=== PATIENT | male | born 1995 | race Asian ===

== ENCOUNTER 2025-03-30 17:12 | Emergency (ER) | payer MEDICAID, OTHER ==
[~2025-03-30] VITALS: Ht 157.5 cm; Wt 68.2 kg
[2025-03-30 17:27] VITALS: BP 129/85; PULSE 85; RESP 18; TEMP 98.5; O2SAT 99
== END 2025-03-30 17:51 | disposition left against medical advice (07) ==
LOC: ER 17:12 → EDBD 17:12 → ER 17:51
DX: M79.606 Pain in leg, unspecified (principal); Z53.21 Procedure and treatment not carried out due to patient leaving prior to being seen by health care provider

== ENCOUNTER 2025-04-01 11:02 | Emergency (ER) | payer MEDICAID ==
[~2025-04-01] VITALS: Ht 170.2 cm; Wt 82.0 kg
--- NOTE | 2025-04-01 11:07 | ED.PDOC ---
History of Present Illness HPI Comments 29-year-old male with PMHx CVA presents with a chief complaint of chest pain. Patient states that his pain is localized to his left ribcage. Patient mentions that he is homeless and smokes methamphetamine. Patient is tender to palpation to his left ribcage. Patient mentions that he recently had a "fall backwards". Time Seen by MD: 10:59 Primary Care Provider: denies Reviewed Notes: Medications, Allergies Allergies: Coded Allergies: NO KNOWN ALLERGIES (Unverified , 03/30/25) Home Meds Active Scripts Clindamycin Hcl (CLEOCIN) 150 Mg Cap, 1 CAP PO TID, #30 CAP Prov:CHAN GOTTI MD 04/01/25 Information Source: Patient, Emergency Med Personnel Mode of Arrival: EMS Severity: Moderate Timing: Hours Duration: Since onset Prehospital treatment: None Past Medical History PAST MEDICAL HISTORY: CVA Surgical History (Other): BRAIN SURGERY Family History Family History: Reviewed,noncontributory to illness Social History Smoker: Cigarettes Alcohol: Rarely Drugs: Marijuana, Methamphetamine Lives In: Homeless Constitutional: denies: chills, diaphoresis, fatigue, fever, malaise, sweats, weakness, others EENTM: denies: blurred vision, double vision, ear bleeding, ear discharge, ear drainage, ear pain, ear ringing, eye pain, eye redness, hearing loss, mouth pain, mouth swelling, nasal discharge, nose bleeding, nose congestion, nose pain, photophobia, tearing, throat pain, throat swelling, voice changes, others Respiratory: denies: cough, hemoptysis, orthopnea, SOB at rest, shortness of breath, SOB with excertion, stridor, wheezing, others Cardiovascular: reports: chest pain; denies: dizzy spells, diaphoresis, Dyspnea on exertion, edema, irregular heart beat, left arm pain, lightheadedness, palpitations, PND, syncope, others Gastrointestinal: denies: abdomen distended, abdominal pain, blood streaked bowels, constipated, diarrhea, dysphagia, difficulty swallowing, hematemesis, melena, nausea, poor appetite, poor fluid intake, rectal bleeding, rectal pain, vomiting, others Genitourinary: denies: burning, dysuria, flank pain, frequency, hematuria, incontinence, penile discharge, penile sore, pain, testicle pain, testicle swelling, urgency, others Neurological: denies: dizziness, fainting, headache, left sided numbness, left sided weakness, numbness, paresthesia, pre-existing deficit, right sided numbness, right sided weakness, seizure, speech problems, tingling, tremors, weakness, others Musculoskeletal: denies: back pain, gout, joint pain, joint swelling, muscle pain, muscle stiffness, neck pain, others Integumetry: denies: bruises, change in color, change in hair/nails, dryness, laceration, lesions, lumps, rash, wounds, others Allergic/Immunocompromised: denies: Difficulty Healing, Frequent Infections, Hives, Itching, others Hematologic/Lymphatic: denies: anemia, blood clots, easy bleeding, easy bruising, swollen glands, others Endocrine: denies: excessive hunger, excessive sweating, excessive thirst, excessive urination, flushing, intolerance to cold, intolerance to heat, unexplained weight gain, unexplained weight loss, others Psychiatric: denies: anxiety, bipolar disorder, depression, hopeless, panic dis order, schizophrenia, sleepless, suicidal, others All Other Systems: Reviewed and Negative Physical Exam General Appearance: Cachectic HEENT: Normal ENT Inspection, Pharynx Normal, TMs Normal Neck: Full Range of Motion, Non-Tender, Normal, Normal Inspection Respiratory: Chest Non-Tender, Lungs Clear, No Accessory Muscle Use, No Respiratory Distress, Normal Breath Sounds Cardiovascular: No Edema, No JVD, No Murmur, No Gallop, Normal Peripheral Pulses, Regular Rate/Rhythm Breast Exam: Deferred Gastrointestinal: No Organomegaly, Non Tender, No Pulsatile Mass, Normal Bowel Sounds, Soft Genitalia: Deferred Pelvic: Deferred Rectal: Deferred Extremities: No calf tenderness, Normal capillary refill, Normal inspection, Normal range of motion, Non-tender, No pedal edema Musculoskeletal : Apperance: Normal Neurologic: Alert, 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 Was a procedure done?: No EKG EKG : Pulse Rate (adult): 130 [place]: Normal Cardiac Rhythm: ST Block: None Hypertrophy: None ST: Normal Differential Dx Considerations may include: Cellulitis, abscess, generalized weakness, atypical chest pain X-Ray, Labs, Meds, VS Vital Signs Date Time Temp Pulse Resp B/P (MAP) Pulse Ox O2 Delivery O2 Flow Rate FiO2 04/01/25 12:00 99.8 120 18 105/78 (87) 99 99.8 04/01/25 11:07 130 04/01/25 11:02 130 Lab Test 04/01/25 11:13 Range/Units White Blood Count 14.7 H 4.4-10.8 10^3/uL Red Blood Count 4.78 4.5-5.90 10^6/uL Hemoglobin 13.6 13.5-17.5 g/dL Hematocrit 40.4 L 41.0-53.0 % Mean Corpuscular Volume 84.3 80.0-100.0 fL Mean Corpuscular Hemoglobin 28.4 28.0-32.0 pg Mean Corpuscular Hemoglobin Concent 33.7 32.0-36.0 g/dL Red Cell Distribution Width 14.5 H 11.8-14.3 % Platelet Count 294 140-450 10^3/uL Mean Platelet Volume 7.2 6.9-10.8 fL Neutrophils (%) (Auto) 83.9 H 37.0-80.0 % Lymphocytes (%) (Auto) 5.9 L 10.0-50.0 % Monocytes (%) (Auto) 9.3 0.0-12.0 % Eosinophils (%) (Auto) 0.6 0.0-7.0 % Basophils (%) (Auto) 0.3 0.0-2.0 % Neutrophils # (Auto) 12.3 H 1.6-8.6 10 ^3/uL Lymphocytes # (Auto) 0.9 0.4-5.4 10 ^3/uL Monocytes # (Auto) 1.4 H 0-1.3 10 ^3/uL Eosinophils # (Auto) 0.1 0-0.8 10 ^3/uL Basophils # (Auto) 0 0-0.2 10 ^3/uL Nucleated Red Blood Cells 0.0 % Sodium Level 139 136-145 mmol/L Potassium Level 4.3 3.5-5.1 mmol/L Chloride Level 104 98-107 mmol/L Carbon Dioxide Level 26 20-31 mmol/L Anion Gap 9 5-15 Blood Urea Nitrogen 14 9-23 mg/dL Creatinine 0.87 0.700-1.30 mg/dL Glomerular Filtration Rate Calc 121 >90 mL/min BUN/Creatinine Ratio 16.1 10.0-20.0 Serum Glucose 93 74-106 mg/dL Calcium Level 10.7 H 8.7-10.4 mg/dL Troponin I High Sensitivity < 3 L </=54 ng/L The chest x-ray is negative The CBC shows an elevated white blood cell count of 14.7 The rest of the CBC is within normal limits The chemistry panel is within normal limits We feel that this white blood cell count could be secondary to cellulitis on the legs At this time, the patient was placed on clindamycin The patient will return to the emergency department's condition worsens. Instrumentation Instructor consult has been placed Images Reviewed?: Images reviewed and evaluated by me Time of 1ST Reevaluation: 11:29 Reevaluation 1ST: Unchanged Patient Education/Counseling: Diagnosis, Treatment, Prognosis, Need For Follow Up Family Education/Counseling: No Family Present Departure 1 Departure Time of Disposition: 12:21 Impression: Primary Impression: Bilateral lower leg cellulitis Additional Impression: Musculoskeletal chest pain Disposition: 01 HOME / SELF CARE / HOMELESS Condition: Fair e-Prescriptions Clindamycin Hcl (CLEOCIN) 150 Mg Cap 1 CAP PO TID, #30 CAP Prov: CHAN GOTTI MD 04/01/25 Discharged With: Self Critical Care Note Critical Care Time?: No Stability Stability form required: No Heart Score Heart Score: Heart Score Response (Comments) Value History N/A 0 EKG N/A 0 Age N/A 0 Risk Factors N/A 0 Troponin N/A 0 Total 0 I personally scribed for CHAN GOTTI MD ([email or web address]) on 04/01/25 at 11:07. Electronically submitted by Geraldo Bernstein ([email or web address]). CHAN GOTTI MD April 01, 2025 11:07
[2025-04-01] MEDS ORDERED: SODIUM CHLORIDE 0.9% 1,000 ML IV ONE (11:15)
[2025-04-01 11:31] LABS: Basophils # (auto) 0 10 ^3/uL (0-0.2); Basophils % (auto) 0.3 % (0.0-2.0); Eosinophils # (auto) 0.1 10 ^3/uL (0-0.8); Eosinophils % (auto) 0.6 % (0.0-7.0); Hematocrit 40.4 % (41.0-53.0); Hemoglobin 13.6 g/dL (13.5-17.5); Lymphocytes # (auto) 0.9 10 ^3/uL (0.4-5.4); Lymphocytes % (auto) 5.9 % (10.0-50.0); Mean Corpuscular Hemoglobin 28.4 pg (28.0-32.0); Mean Corpuscular Hgb Conc. 33.7 g/dL (32.0-36.0); Mean Corpuscular Volume 84.3 fL (80.0-100.0); Monocytes # (auto) 1.4 10 ^3/uL (0-1.3); Monocytes % (auto) 9.3 % (0.0-12.0); Neutrophils # (auto) 12.3 10 ^3/uL (1.6-8.6); Neutrophils % (auto) 83.9 % (37.0-80.0); Platelet Count (auto) 294 10^3/uL (140-450); Red Blood Cells 4.78 10^6/uL (4.5-5.90); Red Cell Distribution Width 14.5 % (11.8-14.3); White Blood Cell 14.7 10^3/uL (4.4-10.8)
[2025-04-01 11:39] LABS: Chloride 104 mmol/L (98-107); Potassium 4.3 mmol/L (3.5-5.1); Sodium 139 mmol/L (136-145)
[2025-04-01 11:40] LABS: Anion Gap 9 (5-15); Carbon Dioxide 26 mmol/L (20-31)
[2025-04-01 11:42] LABS: Calcium 10.7 mg/dL (8.7-10.4)
[2025-04-01 11:45] LABS: Glucose 93 mg/dL (74-106)
[2025-04-01 11:46] LABS: BUN/Creatinine Ratio 16.1 (10.0-20.0); Blood Urea Nitrogen 14 mg/dL (9-23)
[2025-04-01 12:00] VITALS: BP 105/78; PULSE 120; RESP 18; TEMP 99.8; O2SAT 99
--- NOTE | 2025-04-01 12:12 | DVH ---
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 Lungs: Clear Pleura: No effusion. No pneumothorax. Cardiomediastinal contours: Unremarkable Bones: Unremarkable IMPRESSION: No evidence of acute disease.
[2025-04-01] MEDS ORDERED: CLIN150C PO (12:22)
--- NOTE | 2025-04-01 18:58 | ECG ---
[facility] Test Date: 2025-04-01 Test Time: 11:02:03 Pat Name: CLAUDIA CORTES Department: ED Room: Gender: M Sample Book Maker: CHUCHO : 1995 Requested By: CHAN GOTTI Order Number: [id number] Reading MD: Measurements Intervals [place] Rate: 130 P: 101 MN: 119 QRS: 88 QRSD: 80 T: 45 QT: 287 QTc: 422 Interpretive Statements Sinus tachycardia Consider right atrial enlargement Please click the below link to view image of tracing.
== END 2025-04-01 15:59 | disposition home or self-care (01) ==
LOC: EDSEX 11:02 → EDBD 11:02 → ER 11:06
DX: L03.115 Cellulitis of right lower limb (principal); L03.116 Cellulitis of left lower limb; R07.89 Other chest pain; F17.210 Nicotine dependence, cigarettes, uncomplicated; Z86.73 Personal history of transient ischemic attack (TIA), and cerebral infarction without residual deficits; Z59.00 Homelessness unspecified
CPT/HCPCS: 36415; 71046; 80048; 84484; 85025; 93005

== ENCOUNTER 2025-05-15 10:22 | Emergency (ER) | payer MEDICAID ==
[~2025-05-15] VITALS: Ht 165.1 cm; Wt 59.0 kg
[~2025-05-15 10:22] MED LIST: CLIN150C PO
--- NOTE | 2025-05-15 11:50 | ED.PDOC ---
History of Present Illness(SKN HPI Comments A 29 YEAR OLD MALE BROUGHT IN BY AMBULANCE PRESENTS TO THE ED WITH COMPLAINT OF INSECT BITES OF BILATERAL ANKLES. PATIENT STATES HE WAS BITTEN BY INSECT ON HIS BILATERAL ANKLES ABOUT 3 DAYS AGO AND HAS BEEN EXPERIENCING REDNESS, SWELLING, AND INCREASED PAIN OVER THE PAST 3 DAYS. PATIENT DENIES FEVER, CHILLS, SHORTNESS OF BREATH, CHEST PAIN, ABDOMINAL PAIN, NAUSEA, VOMITING, HEADACHE, OR OTHER COMPLAINTS. NO OTHER SYMPTOMS OR MODIFYING FACTORS AT THIS TIME. PATIENT IS ALERT, ORIENTED X 4, AND HAS STEADY GAIT. Chief Complaint: Wound Check Time Seen by MD: 10:42 Primary Care Provider: unknown History of Present Illness: Nurses Notes, Medications, Allergies Allergies: Coded Allergies: NO KNOWN ALLERGIES (Unverified , 03/30/25) Home Meds Active Scripts Cephalexin Monohydrate (Cephalexin) 500 Mg Cap, 1 CAP PO TID, #30 CAP Prov:LORETTA GROVES 05/15/25 Sulfamethoxazole W/Trimethopri (Bactrim Ds Tablet) 1 Tab Tb, 1 TAB PO BID for 10 Days, #20 TAB Prov:LORETTA GROVES 05/15/25 Clindamycin Hcl (CLEOCIN) 150 Mg Cap, 1 CAP PO TID, #30 CAP Prov:CHAN GOTTI MD 04/01/25 Information Source: Patient, Emergency Med Personnel Mode of Arrival: EMS Severity: Moderate Timing: Days Duration: Since onset, Days Prehospital treatment: None Location: Other (BILATERAL ANKLES) Mechanism: Insect Occurence: Outdoors Object: None Condition of Object: None Retained Foreign Body: No Wound Type: Other (INSECT BITES) Immunization Status of Animal: NA Tetanus: UTD, Unknown History of: None Associated Signs and Symptoms: Redness, Pain Past Medical History PAST MEDICAL HISTORY: Denies Surgical History: Denies all surgeries Family History Family History: Reviewed,noncontributory to illness Social History Smoker: Cigarettes Alcohol: Rarely Drugs: Marijuana, Methamphetamine Lives In: Homeless Constitutional: denies: chills, diaphoresis, fatigue, fever, malaise, sweats, weakness, others EENTM: denies: blurred vision, double vision, ear bleeding, ear discharge, ear drainage, ear pain, ear ringing, eye pain, eye redness, hearing loss, mouth pain, mouth swelling, nasal discharge, nose bleeding, nose congestion, nose pain, photophobia, tearing, throat pain, throat swelling, voice changes, others Respiratory: denies: cough, hemoptysis, orthopnea, SOB at rest, shortness of breath, SOB with excertion, stridor, wheezing, others Cardiovascular: denies: chest pain, dizzy spells, diaphoresis, Dyspnea on exertion, edema, irregular heart beat, left arm pain, lightheadedness, palpitations, PND, syncope, others Gastrointestinal: denies: abdomen distended, abdominal pain, blood streaked bowels, constipated, diarrhea, dysphagia, difficulty swallowing, hematemesis, melena, nausea, poor appetite, poor fluid intake, rectal bleeding, rectal pain, vomiting, others Genitourinary: denies: burning, dysuria, flank pain, frequency, hematuria, incontinence, penile discharge, penile sore, pain, testicle pain, testicle swelling, urgency, others Neurological: denies: dizziness, fainting, headache, left sided numbness, left sided weakness, numbness, paresthesia, pre-existing deficit, right sided numbness, right sided weakness, seizure, speech problems, tingling, tremors, weakness, others Musculoskeletal: denies: back pain, gout, joint pain, joint swelling, muscle pain, muscle stiffness, neck pain, others Integumetry: reports: lesions, lumps, wounds (INSECT BITES OF BILATERAL ANKLES); denies: bruises, change in color, change in hair/nails, dryness, laceration, rash, others Allergic/Immunocompromised: denies: Difficulty Healing, Frequent Infections, Hives, Itching, others Hematologic/Lymphatic: denies: anemia, blood clots, easy bleeding, easy bruising, swollen glands, others Endocrine: denies: excessive hunger, excessive sweating, excessive thirst, excessive urination, flushing, intolerance to cold, intolerance to heat, unexplained weight gain, unexplained weight loss, others Psychiatric: denies: anxiety, bipolar disorder, depression, hopeless, panic disorder, schizophrenia, sleepless, suicidal, others All Other Systems: Reviewed and Negative Physical Exam General Appearance: No Apparent Distress, Normal HEENT: Normal ENT Inspection, PERRL/EOMI, Pharynx Normal, TMs Normal Neck: Full Range of Motion, Non-Tender, Normal, Normal Inspection Respiratory: Chest Non-Tender, Lungs Clear, No Accessory Muscle Use, No Respiratory Distress, Normal Breath Sounds Cardiovascular: No Edema, No JVD, No Murmur, No Gallop, Normal Peripheral Pulses, Regular Rate/Rhythm Breast Exam: Deferred Gastrointestinal: No Organomegaly, Non Tender, No Pulsatile Mass, Normal Bowel Sounds, Soft Genitalia: Deferred Pelvic: Deferred Rectal: Deferred Extremities: No calf tenderness, Normal capillary refill, Normal range of motion, No pedal edema, Tender (WITH RED BUMPS ON BILATERAL LOWER LEGS, NO BONY TENDERNESS, SWELLING AND DEFORMITY, NO DVT SIGNS. 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 ) Peripheral Pulses: 2+ carotid (R), 2+ carotid (L) Lymphatic: No Adenopathy Was a procedure done? Was a procedure done?: No Differential Diagnosis (INTG) Differential Diagnosis: Abrasion, Cellulitis, Insect Envenomation, Puncture Wound Differential Diagnosis: Impetigo, Lyme disease Differential Diagnosis: Abrasion, Cellulitis, N/A Abscess: N/A Differential Diagnosis: N/A X-Ray, Labs, Meds, VS Vital Signs Date Time Temp Pulse Resp B/P (MAP) Pulse Ox O2 Delivery O2 Flow Rate FiO2 05/15/25 10:27 98.1 107 20 119/74 (89) 97 98.1 X-Ray, Labs, Meds, VS Comment EXTERNAL MEDICAL RECORDS REVIEWED: [NONE] INDEPENDENT HISTORIANS: [NONE] SOCIAL DETERMINANTS OF HEALTH: [NONE] LABS ORDERED: NONE REVIEWED AND INTERPRETED RESULTS: NONE IMAGING ORDERED: NONE TREATMENTS ORDERED: PATIENT DECLINED ROCEPHIN INJECTION HERE IN THE ED. PROCEDURES PERFORMED: NONE CRITICAL CARE TIME: NONE I HAVE DISCUSSED THE PATIENT WITH THE ATTENDING PHYSICIAN DR. HERNANDEZ AND HE AGREES WITH THE PATIENT'S PLAN OF CARE AND DISPOSITION. BASED ON HISTORY OF PRESENT ILLNESS, AND PHYSICAL EXAM, PATIENT WILL BE DISCHARGED HOME. DISCUSSED PLAN FOR DISCHARGE HOME WITH RX [KEFLEX AND SEPTRA DS]. MEDICATION WARNINGS GIVEN. SHARED DECISION MAKING: PATIENT INSTRUCTED TO FOLLOW UP WITH PRIMARY CARE PROVIDER IN 1-2 DAYS FOR RE-EVALUATION OF SYMPTOMS. PATIENT VERBALIZES UNDERSTANDING TO RETURN TO ED FOR NEW OR WORSENING SYMPTOMS OR IF FOLLOW UP WITH PCP CANNOT BE OBTAINED. PATIENT FEELS COMFORTABLE GOING HOME AT THIS TIME. ALL QUESTIONS ADDRESSED AT TIME OF DISCHARGE. Time of 1ST Reevaluation: 12:00 Reevaluation 1ST: Improved Patient Education/Counseling: Diagnosis, Treatment, Need For Follow Up Family Education/Counseling: Diagnosis, Treatment, Need For Follow Up Medical Screening: No EMC Exist At This Time SEPSIS Sepsis Screen Date sepsis recognized/suspect: May 15, 2025 Time Sepsis recognized/suspect: 1028 Recent Procedure: No On Antibiotic Therapy: No Respiratory Rate >20: No Heart Rate >90: Yes Temp<36 C (96.8 F) or >38.3 C: No SBP <90 or MAP <65 mmHG: No New Acute Mental Status Change: No Is the patient on CPAP, BIPAP,: No Vital Signs Date Time Temp Pulse Resp B/P (MAP) Pulse Ox O2 Delivery O2 Flow Rate FiO2 05/15/25 10:27 98.1 107 20 119/74 (89) 97 98.1 Departure 1 Departure Time of Disposition: 12:00 Impression: Primary Impression: Insect bite of ankle Qualified Codes: S90.569A - Insect bite (nonvenomous), unspecified ankle, i nitial encounter; W57.XXXA - Bitten or stung by nonvenomous insect and other nonvenomous arthropods, initial encounter Disposition: 01 HOME / SELF CARE / HOMELESS Condition: Stable Additional Instructions: FOLLOW UP WITH PCP IN 1-2 DAYS. TAKE MEDICATIONS PRESCRIBED. RETURN TO ED FOR ANY NEW OR WORSENING SYMPTOMS. e-Prescriptions Cephalexin Monohydrate (Cephalexin) 500 Mg Cap 1 CAP PO TID, #30 CAP Prov: LORETTA GROVES 05/15/25 Sulfamethoxazole W/Trimethopri (Bactrim Ds Tablet) 1 Tab Tb 1 TAB PO BID for 10 Days, #20 TAB Prov: LORETTA GROVES 05/15/25 Discharged With: Self Critical Care Note Critical Care Time?: No Stability Stability form required: No I personally scribed for LORETTA GROVES ([email or web address]) on 05/15/25 at 11:50. Electronically submitted by Maco Espinoza ([email or web address]). LORETTA GROVES May 15, 2025 11:50
[2025-05-15] MEDS ORDERED: BACDST PO (11:57)
[2025-05-15] MEDS ORDERED: CEPH500C PO (11:57)
[2025-05-15 12:09] VITALS: BP 114/63; PULSE 95; RESP 20; TEMP 98.6; O2SAT 97
== END 2025-05-15 12:04 | disposition home or self-care (01) ==
LOC: ER 10:22 → EDBD 10:22 → EDUNIT# 10:22 → ER 12:04
DX: S90.562A Insect bite (nonvenomous), left ankle, initial encounter (principal); S90.561A Insect bite (nonvenomous), right ankle, initial encounter; F17.210 Nicotine dependence, cigarettes, uncomplicated; F10.90 Alcohol use, unspecified, uncomplicated; F12.90 Cannabis use, unspecified, uncomplicated; F19.90 Other psychoactive substance use, unspecified, uncomplicated; Z79.899 Other long term (current) drug therapy; W57.XXXA Bitten or stung by nonvenomous insect and other nonvenomous arthropods, initial encounter; Y93.89 Activity, other specified; Y92.89 Other specified places as the place of occurrence of the external cause; Y99.8 Other external cause status; Y90.9 Presence of alcohol in blood, level not specified

== ENCOUNTER 2025-05-18 16:10 | Emergency (ER) | payer MEDICAID ==
[~2025-05-18] VITALS: Ht 162.6 cm; Wt 64.0 kg
[~2025-05-18 16:10] MED LIST changes: +BACDST PO; +CEPH500C PO
--- NOTE | 2025-05-18 16:49 | ED.PDOC ---
History of Present Illness HPI Comments 29-year-old male brought in by ambulance in restraints and with the chief complaint of SI. Patient is homeless and was picked up at a [facility] do from the patient trying to kill himself being safety scissors and needles. AMS note that the patient has tried rehab was before but has never completed them. Patient states that he is feeling depressed at the moment. Patient has a poke abrasions on the left side of the umbilical, as well as the left wrist. Patient is A&O x4 and very calm at the moment. Denies chills, fever, N/V/D, SOB, CP. No other associated symptoms, modifiers, recent injuries or sick contacts present at this time. Chief Complaint: Suicidal Time Seen by MD: 16:20 Primary Care Provider: NONE Reviewed Notes: Nurses Notes, Turbine Assembler Notes, Medications, Allergies Allergies: Coded Allergies: NO KNOWN ALLERGIES (Unverified , 03/30/25) Home Meds Active Scripts Cephalexin Monohydrate (Cephalexin) 500 Mg Cap, 1 CAP PO TID, #30 CAP Prov:LORETTA GROVES 05/15/25 Sulfamethoxazole W/Trimethopri (Bactrim Ds Tablet) 1 Tab Tb, 1 TAB PO BID for 10 Days, #20 TAB Prov:LORETTA GROVES 05/15/25 Clindamycin Hcl (CLEOCIN) 150 Mg Cap, 1 CAP PO TID, #30 CAP Prov:CHAN GOTTI MD 04/01/25 Information Source: Patient, Emergency Med Personnel Mode of Arrival: EMS Severity: Moderate Timing: Minutes Duration: Since onset, Minutes Prehospital treatment: None Past Medical History PAST MEDICAL HISTORY: Denies Surgical History: Denies all surgeries Family History Family History: Reviewed,noncontributory to illness, Unknown Social History Smoker: Unknown Alcohol: Unknown Drugs: Marijuana, Methamphetamine Lives In: Homeless Constitutional: denies: chills, diaphoresis, fatigue, fever, malaise, sweats, weakness, others EENTM: denies: blurred vision, double vision, ear bleeding, ear discharge, ear drainage, ear pain, ear ringing, eye pain, eye redness, hearing loss, mouth pain, mouth swelling, nasal discharge, nose bleeding, nose congestion, nose pain, photophobia, tearing, throat pain, throat swelling, voice changes, others Respiratory: denies: cough, hemoptysis, orthopnea, SOB at rest, shortness of breath, SOB with excertion, stridor, wheezing, others Cardiovascular: denies: chest pain, dizzy spells, diaphoresis, Dyspnea on exertion, edema, irregular heart beat, left arm pain, lightheadedness, palpitations, PND, syncope, others Gastrointestinal: denies: abdomen distended, abdominal pain, blood streaked bowels, constipated, diarrhea, dysphagia, difficulty swallowing, hematemesis, melena, nausea, poor appetite, poor fluid intake, rectal bleeding, rectal pain, vomiting, others Genitourinary: denies: burning, dysuria, flank pain, frequency, hematuria, incontinence, penile discharge, penile sore, pain, testicle pain, testicle swelling, urgency, others Neurological: denies: dizziness, fainting, headache, left sided numbness, left sided weakness, numbness, paresthesia, pre-existing deficit, right sided numbness, right sided weakness, seizure, speech problems, tingling, tremors, weakness, others Musculoskeletal: denies: back pain, gout, joint pain, joint swelling, muscle pain, muscle stiffness, neck pain, others Integumetry: denies: bruises, change in color, change in hair/nails, dryness, laceration, lesions, lumps, rash, wounds, others Allergic/Immunocompromised: denies: Difficulty Healing, Frequent Infections, Hives, Itching, others Hematologic/Lymphatic: denies: anemia, blood clots, easy bleeding, easy bruising, swollen glands, others Endocrine: denies: excessive hunger, excessive sweating, excessive thirst, excessive urination, flushing, intolerance to cold, intolerance to heat, un explained weight gain, unexplained weight loss, others Psychiatric: reports: suicidal; denies: anxiety, bipolar disorder, depression, hopeless, panic disorder, schizophrenia, sleepless, others All Other Systems: Reviewed and Negative Physical Exam Exam Comments poke abrasions on the left side of the umbilical, as well as the left wrist General Appearance: No Apparent Distress, Normal HEENT: Normal ENT Inspection, Pharynx Normal, TMs Normal Neck: Full Range of Motion, Non-Tender, Normal, Normal Inspection Respiratory: Chest Non-Tender, Lungs Clear, No Accessory Muscle Use, No Respiratory Distress, Normal Breath Sounds Cardiovascular: No Edema, No JVD, No Murmur, No Gallop, Normal Peripheral Pulses, Regular Rate/Rhythm Breast Exam: Deferred Gastrointestinal: No Organomegaly, Non Tender, No Pulsatile Mass, Normal Bowel Sounds, Soft Genitalia: Deferred Pelvic: Deferred Rectal: Deferred Extremities: No calf tenderness, Normal capillary refill, Normal inspection, Normal range of motion, Non-tender, No pedal edema Musculoskeletal : Apperance: Normal Neurologic: Alert, fha underwriter II-XII nml as Tested, No Motor Deficits, Normal Affect, Normal Mood, No Sensory Deficits Cerebellar Function: Normal Reflexes: Normal Skin: Dry, Normal Color, Warm Lymphatic: No Adenopathy Was a procedure done? Was a procedure done?: No Differential Dx Considerations may include: SI, psychosis X-Ray, Labs, Meds, VS Vital Signs Date Time Temp Pulse Resp B/P (MAP) Pulse Ox O2 Delivery O2 Flow Rate FiO2 05/19/25 09:39 98.0 65 18 125/80 (95) 100 98.0 05/19/25 07:45 Room Air* 0 21 05/18/25 19:55 95 14 102/62 (75) 97 05/18/25 19:50 Room Air* 0 21 05/18/25 16:30 Room Air* 0 21 05/18/25 16:30 98.5 105 16 109/66 (80) 95 98.5 05/18/25 16:20 97.6 127 18 119/69 (86) 97 97.6 Lab Test 05/18/25 17:08 Range/Units White Blood Count 8.1 4.4-10.8 10^3/uL Red Blood Count 4.94 4.5-5.90 10^6/uL Hemoglobin 13.8 13.5-17.5 g/dL Hematocrit 41.7 41.0-53.0 % Mean Corpuscular Volume 84.5 80.0-100.0 fL Mean Corpuscular Hemoglobin 28.0 28.0-32.0 pg Mean Corpuscular Hemoglobin Concent 33.2 32.0-36.0 g/dL Red Cell Distribution Width 14.9 H 11.8-14.3 % Platelet Count 282 140-450 10^3/uL Mean Platelet Volume 7.5 6.9-10.8 fL Neutrophils (%) (Auto) 73.4 37.0-80.0 % Lymphocytes (%) (Auto) 12.0 10.0-50.0 % Monocytes (%) (Auto) 9.9 0.0-12.0 % Eosinophils (%) (Auto) 3.8 0.0-7.0 % Basophils (%) (Auto) 0.9 0.0-2.0 % Neutrophils # (Auto) 5.9 1.6-8.6 10 ^3/uL Lymphocytes # (Auto) 1.0 0.4-5.4 10 ^3/uL Monocytes # (Auto) 0.8 0-1.3 10 ^3/uL Eosinophils # (Auto) 0.3 0-0.8 10 ^3/uL Basophils # (Auto) 0.1 0-0.2 10 ^3/uL Nucleated Red Blood Cells 0.1 % Sodium Level 146 H 136-145 mmol/L Potassium Level 4.7 3.5-5.1 mmol/L Chloride Level 108 H 98-107 mmol/L Carbon Dioxide Level 34 H 20-31 mmol/L Anion Gap 4 L 5-15 Blood Urea Nitrogen 11 9-23 mg/dL Creatinine 1.14 0.700-1.30 mg/dL Glomerular Filtration Rate Calc 90 >90 mL/min BUN/Creatinine Ratio 9.6 L 10.0-20.0 Serum Glucose 95 74-106 mg/dL Calcium Level 10.5 H 8.7-10.4 mg/dL Plasma/Serum Blood Alcohol 3.1 <10 mg/dL Time of 1ST Reevaluation: 16:50 Reevaluation 1ST: Unchanged Patient Education/Counseling: Diagnosis, Treatment, Prognosis Family Education/Counseling: No Family Present SEPSIS Sepsis Screen Date sepsis recognized/suspect: May 18, 2025 Time Sepsis recognized/suspect: 160 Recent Procedure: No On Antibiotic Therapy: No Respiratory Rate >20: No Heart Rate >90: Yes Temp<36 C (96.8 F) or >38.3 C: No SBP <90 or MAP <65 mmHG: No New Acute Mental Status Change: No Is the patient on CPAP, BIPAP,: No Physician Orders Drug Screen (05/18/25 16:25) Urinalysis (05/18/25 16:25) Chest Xray 1 View (05/18/25 16:25) * Psychiatric Consult (05/18/25 16:25) * Software Engineer Web Services Consult (05/18/25 ) * Software Engineer Web Services Consult (05/18/25 ) Regular Diet (05/19/25 Lunch) Vital Signs Date Time Temp Pulse Resp B/P (MAP) Pulse Ox O2 Delivery O2 Flow Rate FiO2 05/19/25 09:39 98.0 65 18 125/80 (95) 100 98.0 05/19/25 07:45 Room Air* 0 21 05/18/25 19:55 95 14 102/62 (75) 97 05/18/25 19:50 Room Air* 0 21 05/18/25 16:30 Room Air* 0 21 05/18/25 16:30 98.5 105 16 109/66 (80) 95 98.5 05/18/25 16:20 97.6 127 18 119/69 (86) 97 97.6 Laboratory Tests Test 05/18/25 17:08 White Blood Count 8.1 10^3/uL (4.4-10.8) Departure 1 Departure Time of Disposition: 10:28 (Patient is medically cleared. Patient was evaluated for a hold gentle hold was written. We will transfer patient to a psychiatric facility) Impression: Primary Impression: Suicide ideation Disposition: [address] [place] [address] Condition: Serious Critical Care Note Critical Care Time?: No Stability Stability form required: No I personally scribed for VONDA VALDIVIAP (WILLIAN) on 05/18/25 at 16:49. Electronically submitted by Alban Nielsen ([employer]). I personally scribed for VONDA VALDIVIA ELECTRIC MOTOR REPAIRING SUPERVISOR (WILLIAN) on 05/18/25 at 16:49. Electronically submitted by Alban Nielsen ([employer]). VONDA VALDIVIA May 18, 2025 16:49 PRESTON HERNANDEZ MD May 19, 2025 10:28
--- NOTE | 2025-05-18 17:20 | DVH ---
AP portable chest CLINICAL INDICATION: cp FINDINGS: There is a ventriculoperitoneal shunt catheter overlying the lower right neck and chest ext ending to the upper abdomen. Heart size is normal. No infiltrates or effusions. No bony thoracic abno rmalities. IMPRESSION: 1. No acute cardiopulmonary pathology
[2025-05-18 17:27] LABS: Hematocrit 41.7 % (41.0-53.0); Hemoglobin 13.8 g/dL (13.5-17.5); Mean Corpuscular Hemoglobin 28.0 pg (28.0-32.0); Mean Corpuscular Volume 84.5 fL (80.0-100.0); Nucleated Red Blood Cells % 0.1 %
[2025-05-18 17:47] LABS: Anion Gap 4 (5-15); Potassium 4.7 mmol/L (3.5-5.1)
[2025-05-18 17:53] LABS: BUN/Creatinine Ratio 9.6 (10.0-20.0); Blood Urea Nitrogen 11 mg/dL (9-23); Calcium 10.5 mg/dL (8.7-10.4); Carbon Dioxide 34 mmol/L (20-31); Chloride 108 mmol/L (98-107); Glucose 95 mg/dL (74-106); Sodium 146 mmol/L (136-145)
--- NOTE | 2025-05-18 21:15 | DVHINCON2 ---
Date of Service if different f: May 18, 2025 Time of Service: 20:40 Consultation ([facility]) Consulting Physician: VLADIMIR RENTERIA MD Labs Laboratory Tests Test 05/18/25 17:08 White Blood Count 8.1 10^3/uL (4.4-10.8) Red Blood Count 4.94 10^6/uL (4.5-5.90) Hemoglobin 13.8 g/dL (13.5-17.5) Hematocrit 41.7 % (41.0-53.0) Mean Corpuscular Volume 84.5 fL (80.0-100.0) Mean Corpuscular Hemoglobin 28.0 pg (28.0-32.0) Mean Corpuscular Hemoglobin Concent 33.2 g/dL (32.0-36.0) Red Cell Distribution Width 14.9 % (11.8-14.3) Platelet Count 282 10^3/uL (140-450) Mean Platelet Volume 7.5 fL (6.9-10.8) Neutrophils (%) (Auto) 73.4 % (37.0-80.0) Lymphocytes (%) (Auto) 12.0 % (10.0-50.0) Monocytes (%) (Auto) 9.9 % (0.0-12.0) Eosinophils (%) (Auto) 3.8 % (0.0-7.0) Basophils (%) (Auto) 0.9 % (0.0-2.0) Neutrophils # (Auto) 5.9 10 ^3/uL (1.6-8.6) Lymphocytes # (Auto) 1.0 10 ^3/uL (0.4-5.4) Monocytes # (Auto) 0.8 10 ^3/uL (0-1.3) Eosinophils # (Auto) 0.3 10 ^3/uL (0-0.8) Basophils # (Auto) 0.1 10 ^3/uL (0-0.2) Nucleated Red Blood Cells 0.1 % Sodium Level 146 mmol/L (136-145) Potassium Level 4.7 mmol/L (3.5-5.1) Chloride Level 108 mmol/L (98-107) Carbon Dioxide Level 34 mmol/L (20-31) Anion Gap 4 (5-15) Blood Urea Nitrogen 11 mg/dL (9-23) Creatinine 1.14 mg/dL (0.700-1.30) Glomerular Filtration Rate Calc 90 mL/min (>90) BUN/Creatinine Ratio 9.6 (10.0-20.0) Serum Glucose 95 mg/dL (74-106) Calcium Level 10.5 mg/dL (8.7-10.4) Plasma/Serum Blood Alcohol 3.1 mg/dL (<10) Appearance: Stated age Psychomotor activity: WNL, Calm Behavioral: Cooperative Eye contact: Appropriate Speech: WNL Affect: Mood Congruent Mood: Depressed, Dysphoric Thought processes: Linear/Goal-directed Thought content: WNL Suicidal ideations: Present Homicidal ideations: Absent Orientation: Person, Place, Time, Situation Memory intact: Recent Intellect: Average Abstractability: WNL Concentration: Adequate Attention: Adequate Judgement: Poor Insight: Poor Vitals Vital Signs Date Time Temp Pulse Resp B/P (MAP) Pulse Ox O2 Delivery O2 Flow Rate FiO2 05/18/25 16:30 Room Air* 0 21 05/18/25 16:30 98.5 105 16 109/66 (80) 95 98.5 Treatment plan discussed: With staff Medication adjusted: Yes Labs ordered: No Psychotherapy provided: No Type: 72 hour hold History of Present Illness Reason for Consult : psychiatric evaluation PER ED QUALITY COORDINATOR NOTE: 29-year-old male brought in by ambulance in restraints and with the chief complaint of SI. Patient is homeless and was picked up at a [facility] do from the patient trying to kill himself being safety scissors and needles. AMS note that the patient has tried rehab was before but has never completed them. Patient states that he is feeling depressed at the moment. Patient has a poke abrasions on the left side of the umbilical, as well as the left wrist. Patient is A&O x4 and very calm at the moment. Denies chills, fever, N/V/D, SOB, CP. No other associated symptoms, modifiers, recent injuries or sick contacts present at this time PSYCHIATRIST HPI: The patient was seen and evaluated at [facility] ED via telepsychiatry platform.29 yr old male reported reported "I don't see the point of living. I don't have any purpose." He said he has felt this way for four years. He reported feeling hopeless and helpless. He has frequent thoughts of killing himself almost daily. He has poor appetite. He reported having poor sleep. He feels guilty and shameful of being homeless. He feels like he can't go on and wants to continuing trying to kill himself if he gets a chance. He denied being treated for mental illness in the past, but later reported he was ho spitalized for four months after a serious suicide attempt in [facility]. He reported that he tried to kill himself by stabbing himself with a knife and had to be restrained by first responders. He denied having homicidal ideation, plan or intent. He denied having auditory or visual hallucinations. Past Psychiatric History : He reported attempted suicide 50 times. He said he took 200 sleeping pills in [place] and was hospitalized for four months. Past Medical History: h/o stroke at 14 yrs old Current Medications: none. NKDA Substance use: Denied alcohol use. Uses meth occasionally.Last used meth three months ago. Denied other substance use. Social History : Homeless for four years. Prior to that, he lived in [facility]. He came to [place] to leave [facility]. Unemployed. Gets food stamps. Diagnosis: UNSPECIFIED DEPRESSIVE DISORDER F29 Formulation: This 29 yr old male appears to suffer from depression which likely is major depressive disorder, severe. He has persistent suicidal ideation and warrants admission to a behavioral health unit. He agrees to voluntary admission. Plan: 1. Transfer to behavioral health unit for further evaluation, treatment and observation. 2. Legal-Initiate 5150 involuntary hold for danger to self. Monitor for safety. 3. Medication: recommend starting Trazodone 50 mg qhs for sleep. Ativan 2mg q 8 hr prn anxiety Olanzapine 10mg q8 hr prn agitation. 4. Contact psychiatry if further evaluation or follow up is desired. 5. case discussed with ED staff. Assessment/Diagnosis/Plan Reviewed: Labs, Medications, Previous Orders VLADIMIR RENTERIA MD May 18, 2025 20:42
[2025-05-19 14:38] VITALS: BP 129/75; PULSE 109; RESP 18; TEMP 97.9; O2SAT 99
[2025-05-19 14:50] LABS: Urine Amorphous Crystal FEW /hpf (None Seen); Urine Protein, UAD Negative (Negative)
[2025-05-19 14:57] LABS: Amphetamine Screen, Urine Neg (NEGATIVE); Barbiturate Scree,Urine Neg (NEGATIVE); Benzodiazephine Screen, Urine Neg (NEGATIVE); Cannabinoid Screen, Urine Neg (NEGATIVE); Cocaine Screen, Urine Neg (NEGATIVE); Opiate Scree,Urine Neg (NEGATIVE); Phencyclidine Screen, Urine Neg (NEGATIVE)
== END 2025-05-19 14:55 | disposition short-term general hospital (02) ==
LOC: EDBD 16:10 → ER 16:10
DX: R45.851 Suicidal ideations (principal); F12.90 Cannabis use, unspecified, uncomplicated; F19.90 Other psychoactive substance use, unspecified, uncomplicated; F32.A Depression, unspecified; Z86.73 Personal history of transient ischemic attack (TIA), and cerebral infarction without residual deficits; Z91.51 Personal history of suicidal behavior; Z59.00 Homelessness unspecified; Z79.899 Other long term (current) drug therapy
CPT/HCPCS: 36415; 71045; 80048; 80307; 80320; 81001; 85025